=== PATIENT | female | born 2000 ===

== ENCOUNTER 2024-09-12 19:38 | Emergency (ER) | payer SELFPAY ==
[2024-09-12 20:54] LABS: BASOPHILS PERCENT AUTO 0.2 % (0.0-1.0); EOSINOPHILS PERCENT AUTO 1.5 % (1.0-3.0); LYMPHOCYTES PERCENT AUTO 39.7 % (20.5-50.1); MONOCYTES PERCENT AUTO 6.5 % (2-8); NEUTROPHILS PERCENT AUTO 52.1 % (42.2-75.2); PLATELET COUNT,PLT 264 10^3/uL (150-450); RED BLOOD CELL COUNT 4.64 10^6/uL (4.2-5.4); WHITE BLOOD CELL COUNT,WBC 5.8 10^3/uL (5.0-10.0)
[2024-09-12 21:14] LABS: A/G RATIO 0.8; ALANINE AMINOTRANSFERASE,ALT 101 U/L (14-59); ASPARTATE AMNIOTRANSFERASE,AST 32 U/L (15-37); BILIRUBIN TOTAL 0.3 mg/dL (0.2-1.0); BLOOD UREA NITROGEN,BUN 14 mg/dL (7-18); CARBON DIOXIDE,CO2 31 mmol/L (21-32); CHLORIDE,CL 103 mmol/L (98-107); CREATININE 0.91 mg/dL (0.55-1.02); EST CRCL DRUG DOSING (CG) 74.09 mL/min; ESTIMATED GFR 89 mL/min (>=60); ETHANOL BLOOD MEDICAL < 3 mg/dL (0); GLUCOSE RANDOM 90 mg/dL (70-99); POTASSIUM,K 4.1 mmol/L (3.5-5.1); PROTEIN TOTAL,TP 7.9 g/dL (6.4-8.2); SODIUM,NA 137 mmol/L (136-145)
== END 2024-09-12 23:05 | disposition home or self-care (01) ==
LOC: DL.ED 19:38
DX: A56.8 Sexually transmitted chlamydial infection of other sites (principal); A54.9 Gonococcal infection, unspecified; R21 Rash and other nonspecific skin eruption; J34.2 Deviated nasal septum; F17.210 Nicotine dependence, cigarettes, uncomplicated
CPT/HCPCS: 36415; 80053; 80307; 83735; 85025; 86592; 86593; 86780; 87389; 96372; 99284; J0696; J2003; Q0144; A9270-GY